=== PATIENT | male | born 1945 | race Caucasian/White ===

== ENCOUNTER 2016-12-02 20:29 | Observation (INO) | payer MEDICARE, MEDICAID ==
[~2016-12-02] VITALS: Ht 167.6 cm; Wt 99.7 kg
[2016-12-02] MEDS ORDERED: ASPIRIN 81 MG CHEW TAB ONE (20:40)
[2016-12-02] MEDS ORDERED: ENOXAPARIN 100 MG/ML SYR SUBQ ONE (22:12)
[2016-12-02] MEDS ORDERED: NITROGLYCERIN 2% OINT 1 INCH PKT TOPICAL ONE (22:12)
[2016-12-02] MEDS ORDERED: MORPHINE 2 MG/ML SYR IV PRN (22:25)
[2016-12-02] MEDS ORDERED: TRAMADOL 50 MG TAB PO PRN (22:25)
[2016-12-02] MEDS ORDERED: ACETAMINOPHEN 325 MG TAB PO PRN (22:25)
[2016-12-02] MEDS ORDERED: ONDANSETRON 4 MG VIAL IV PRN (22:25)
[2016-12-02] MEDS ORDERED: NITROGLYCERIN 50 MG/250 ML IV PRN (22:25)
[2016-12-02] MEDS ORDERED: NITROGLYCERIN SL 0.4 MG TAB SL PRN (22:25)
[2016-12-02] MEDS ORDERED: LORAZEPAM 0.5 MG TAB PO PRN (22:25)
[2016-12-02] MEDS ORDERED: TEMAZEPAM 7.5 MG CAP PO PRN (22:25)
[2016-12-02] MEDS ORDERED: DOCUSATE SOD 100 MG CAP PO PRN (22:25)
[2016-12-02] MEDS ORDERED: SALINE FLUSH 10 ML FLUSH PRN (22:25)
[2016-12-02] MEDS ORDERED: SODIUM CHLORIDE 0.9% FLUSH BAG 500 ML IV PRN (22:25)
[2016-12-02 22:50] VITALS: BP_SYST 168; RESP 18; TEMP 98.4; Ht 167.6 cm; Wt 99.7 kg
[2016-12-03 04:19] VITALS: BP_SYST 120; RESP 18; TEMP 98.3
[2016-12-03] MEDS: NITROGLYCERIN 2% OINT 1 INCH PKT TOPICAL SCH ×4 (05:47→17:55)
[2016-12-03 07:29] VITALS: BP_SYST 126; RESP 18; TEMP 98.1
[2016-12-03] MEDS: SALINE FLUSH 10 ML FLUSH SCH ×2 (09:08→21:19)
[2016-12-03] MEDS: ASPIRIN EC 81 MG TAB PO SCH (09:08)
[2016-12-03 11:36] VITALS: BP_SYST 127; RESP 18; TEMP 98.3
[2016-12-03 15:43] VITALS: BP_SYST 122; RESP 18; TEMP 98.3
[2016-12-03 19:30] VITALS: BP_SYST 125; RESP 18; TEMP 98.1
[2016-12-03] MEDS ORDERED: GLUCAGON 1 MG VIAL IM PRN (20:15)
[2016-12-03] MEDS ORDERED: DEXTROSE 50% SYRINGE 50 ML IV PRN (20:15)
[2016-12-03] MEDS ORDERED: PANTOPRAZOLE 40 MG TAB PO SCH (20:24)
[2016-12-03] MEDS ORDERED: ENOXAPARIN 100 MG/ML SYR SUBQ ONE (20:30)
[2016-12-03] MEDS ORDERED: AMITRIPTYLINE 50 MG TAB PO SCH (21:00)
[2016-12-03] MEDS ORDERED: PRAVASTATIN 40 MG TAB PO SCH (21:00)
[2016-12-03] MEDS: Carvedilol 6.25 MG TAB PO SCH (21:07)
[2016-12-03] MEDS: LORATADINE 10 MG TAB PO SCH (21:07)
[2016-12-03] MEDS: HCTZ PO SCH (21:07)
[2016-12-03] MEDS: Losartan 50 MG TAB PO SCH (21:07)
[2016-12-03] MEDS: FERROUS SULF 325 MG TAB PO SCH (21:07)
[2016-12-03] MEDS: SPIRONO PO SCH (21:07)
[2016-12-03] MEDS: LEVOTHYROXINE 0.05 MG TAB PO SCH (21:08)
[2016-12-03] MEDS: EZETIMIBE 10 MG TAB PO SCH (21:08)
[2016-12-03] MEDS: AZELASTINE NASAL 30 ML BTL NARE EACH SCH (21:20)
[2016-12-03] MEDS: FLUTICASONE 0.05% NA BTL NARE EACH SCH (21:20)
[2016-12-03 23:54] VITALS: BP_SYST 107; RESP 18; TEMP 98.5
[2016-12-04] MEDS: NITROGLYCERIN 2% OINT 1 INCH PKT TOPICAL SCH ×2 (00:14→06:30)
[2016-12-04 04:02] VITALS: BP_SYST 117; RESP 18; TEMP 98.5
[2016-12-04] MEDS ORDERED: MISSING DOSE XX ONE ×2 (06:05→08:15)
[2016-12-04] MEDS: LEVOTHYROXINE 0.05 MG TAB PO SCH (06:30)
[2016-12-04] MEDS ORDERED: PANTOPRAZOLE 40 MG TAB PO SCH (07:00)
[2016-12-04 07:46] VITALS: BP_SYST 121; RESP 18; TEMP 98.2
[2016-12-04] MEDS ORDERED: novoLOG MIX 70/30 INSULIN SUBQ SCH (08:00)
[2016-12-04] MEDS: FLUTICASONE 0.05% NA BTL NARE EACH SCH (08:18)
[2016-12-04] MEDS: ASPIRIN EC 81 MG TAB PO SCH (08:18)
[2016-12-04] MEDS: AZELASTINE NASAL 30 ML BTL NARE EACH SCH (08:18)
[2016-12-04] MEDS: SALINE FLUSH 10 ML FLUSH SCH (08:18)
[2016-12-04] MEDS: HCTZ PO SCH (08:57)
[2016-12-04] MEDS: LORATADINE 10 MG TAB PO SCH (08:57)
[2016-12-04] MEDS: SPIRONO PO SCH (08:57)
[2016-12-04] MEDS: Losartan 50 MG TAB PO SCH (08:57)
[2016-12-04] MEDS: FERROUS SULF 325 MG TAB PO SCH (08:58)
[2016-12-04] MEDS: Carvedilol 6.25 MG TAB PO SCH (08:58)
[2016-12-04] MEDS: EZETIMIBE 10 MG TAB PO SCH (08:58)
[2016-12-04 09:21] VITALS: BP_SYST 121; RESP 18; TEMP 98.2
== END 2016-12-04 09:23 | disposition home or self-care (01) ==
LOC: ENRESERVDT → ENRESERVTM → ER 20:29 → EMR 22:00 → ENPENDDIS 22:00 → PCU 22:54 → INTOOBSV 12-04 09:30 → OBSVTOIN 12-04 09:30
PROVIDERS: ADMIT Specialist; ATTEND Specialist
CPT/HCPCS: 36415 ×2; 71010 ×2; 80048 ×2; 80053 ×2; 80061 ×2; 82550 ×2; 82553 ×2; 82947 ×2; 83735 ×2; 84484 ×2; 85025 ×2; 85610 ×2; 85730 ×2; 93005 ×2; 94799; 96372 ×2; 99285; G0378